=== PATIENT | female | born 1975 | race Caucasian/White ===

== ENCOUNTER 2016-09-01 16:12 | Emergency (ER) | payer MEDICARE, OTHER ==
[~2016-09-01 16:12] MED LIST: ADULT LOW DOSE81 MG PO; BETAMETHASONE D60 ML TP; CARDIZEM CD180 MG PO; COREG 3.125M3.125 MG PO; DULERA 200 MCG8.8 GM INH; ESOMEPRAZOLE MA40 MG PO; IRON325 M1 PO; LASIX20 MG PO; LISINOPRIL20 MG PO; MEDROL DOSEPAK 24 MG PO; MELOXICAM15 MG PO; METHADONE HCL10 MG PO; MOBIC15 MG PO; NEURONTIN 300300 MG PO; OXYCODONE HCL15 MG PO; PHENERGAN 25 MG25 M1 PO; PRILOSEC OTC20 MG PO; PROVENTIL HFA 61 INH INH; PROZAC40 MG PO; SYNTHROID50 MCG PO; TYLENOL 325MG325 MG PO; ZANAFLEX4 M1 PO; ZANAFLEX4 MG PO; ZOVIRAX 5% CREAM5 GM TOP
[2016-09-01 19:31] LABS: HEMOGLOBIN 12.4 gm/dl (12.3-15.3); RED BLOOD COUNT 4.31 M/UL (4.00-5.10); WHITE BLOOD COUNT 16.9 K/UL (4.5-11.0)
[2016-09-01 19:46] LABS: BUN/CREATININE RATIO 8 (0-10)
== END 2016-09-01 21:34 | disposition home or self-care (01) ==
LOC: ER1 16:12
PROVIDERS: Physician Assistant
DX: L02.01 Cutaneous abscess of face (principal); I11.0 Hypertensive heart disease with heart failure; I50.9 Heart failure, unspecified; F17.210 Nicotine dependence, cigarettes, uncomplicated
CPT/HCPCS: 36415; 70487; 70491; 71010; 80053; 82550; 83605; 83880; 85025; 85610; 85730; 86140; 87040; 96361; 96365; 96375; 99284; J2405; J7040; J7050; Q9962

== ENCOUNTER 2016-09-11 17:47 | Emergency (ER) | payer MEDICARE, OTHER ==
[2016-09-11 20:04] LABS: HEMOGLOBIN 11.3 gm/dl (12.3-15.3); RED BLOOD COUNT 3.95 M/UL (4.00-5.10); WHITE BLOOD COUNT 14.5 K/UL (4.5-11.0)
[2016-09-11 20:25] LABS: BUN/CREATININE RATIO 10 (0-10)
== END 2016-09-12 01:50 | disposition short-term general hospital (02) ==
LOC: ER1 17:47
PROVIDERS: Emergency Medicine
DX: K92.2 Gastrointestinal hemorrhage, unspecified (principal); R79.1 Abnormal coagulation profile; I13.0 Hypertensive heart and chronic kidney disease with heart failure and stage 1 through stage 4 chronic kidney disease, or unspecified chronic kidney disease; I50.9 Heart failure, unspecified; N18.9 Chronic kidney disease, unspecified; F17.210 Nicotine dependence, cigarettes, uncomplicated; Z79.01 Long term (current) use of anticoagulants; Z79.82 Long term (current) use of aspirin; Z79.899 Other long term (current) drug therapy
CPT/HCPCS: 36415; 36430; 71010; 80053; 82272; 83605; 83880; 85025; 85610; 85730; 86850; 86900; 86901; 86927; 87040; 93005; 96374; 96375; 99285; C9113; J0692; J3370; J7030; J7040; J7050; P9017; Q9962

== ENCOUNTER 2020-08-14 19:09 | Emergency (ER) | payer OTHER ==
[~2020-08-14 19:09] MED LIST changes: +AMARYL 2MG TABLE2 MG PO; +BUMETANIDE1 MG PO; +BUMEX 1MG TABLET1 MG PO; +CARVEDILOL3.125 MG PO; +COMBIVENT RESPIM4 GM INH; +COSENTYX (150 MG/1 M SQ; +COSENTYX P150 MG/1 M SC; +ELIQUIS5 MG PO; +IMDUR ER TAB 3030 MG PO; +JANUVIA 100 MG100 MG PO; +LEVOFLOXACIN500 MG PO; +LIPITOR40 MG PO; +LISINOPRIL40 MG PO; -NEURONTIN 300300 MG PO; +NEURONTIN600 MG PO; +NORVASC5 MG PO; +OMNICEF 300 MG300 MG PO; +PREDNISONE 20 M20 MG PO; +ROXICODONE15 MG PO; +SPIRIVA HANDIH18 MCG INH; +SYMBICORT 160-1 INHA INH; +VITAMIN D350000 UNIT PO; +XARELTO20 MG PO; +ZESTRIL5 MG PO; +ZOLOFT100 MG PO
[2020-08-14 20:32] LABS: HEMOGLOBIN 11.5 gm/dl (12.3-15.3); RED BLOOD COUNT 4.52 M/UL (4.00-5.10); WHITE BLOOD COUNT 17.3 K/UL (4.5-11.0)
[2020-08-14 21:04] LABS: BUN/CREATININE RATIO 10 (0-10)
== END 2020-08-15 01:40 | disposition short-term general hospital (02) ==
LOC: ER1 19:09
PROVIDERS: Family Medicine
DX: L03.213 Periorbital cellulitis (principal); Z20.822 Contact with and (suspected) exposure to COVID-19; E11.9 Type 2 diabetes mellitus without complications; I50.9 Heart failure, unspecified; F17.290 Nicotine dependence, other tobacco product, uncomplicated; Z87.442 Personal history of urinary calculi; H53.9 Unspecified visual disturbance; Z86.14 Personal history of Methicillin resistant Staphylococcus aureus infection
CPT/HCPCS: 0240U; 70487; 80053; 83605; 85025; 87040; 96365; 96366; 99284; J3370; Q9967